=== PATIENT | male | born 1980 | race Caucasian/White ===

== ENCOUNTER → 2020-09-09 | Outpatient (REF) | payer OTHER | LOC: M WUC 11:47 | PROVIDERS: ATTEND Physician Assistant | DX: R19.7 Diarrhea, unspecified (principal) ==

== ENCOUNTER 2021-03-01 08:43 | Day surgery (SDC) | payer OTHER ==
[~2021-03-01] VITALS: Ht 170.2 cm; Wt 90.7 kg
[~2021-03-01 08:43] MED LIST: LIDOCAINE 2% 100MG/5ML SDV (FOR ANES.) As Ordered ONE; NS 1,000 ML IV ONE; OMEP1CAP73 PO; ZOLO100T PO; propofoL 200 MG/20 ML VIAL As Ordered ONE
--- OUTSIDE RECORDS SUMMARY | 2021-03-01 08:47 | CCD ---
Author Author [facility] Organization [facility] Address Unknown Phone Unavailable Care Team Providers Care Extruding Press Adjuster Name Role Phone Erin Milton MD Unavailable Unavailable Erin Milton MD Unavailable Unavailable Erin Milton MD Unavailable Unavailable Erin Milton MD Unavailable Unavailable Erin Milton MD Unavailable Unavailable Erin Milton MD Unavailable Unavailable Erin Milton MD Unavailable Unavailable Erin Milton MD Unavailable Unavailable Erin Milton MD Unavailable Unavailable Erin Milton MD Unavailable Unavailable Erin Milton MD Unavailable Unavailable Erin Milton MD Unavailable Unavailable Erin Milton MD Unavailable Unavailable Erin Milton MD Unavailable Unavailable Erin Milton MD Unavailable Unavailable Erin Milton MD Unavailable Unavailable Erin Milton MD Unavailable Unavailable Erin Milton MD Unavailable Unavailable Erin Milton MD Unavailable Unavailable Erin Milton MD Unavailable Unavailable Erin Milton MD Unavailable Unavailable Erin Milton MD Unavailable Unavailable Erin Milton MD Unavailable Unavailable Erin Milton MD Unavailable Unavailable Erin Milton MD Unavailable Unavailable Erin Milton MD Unavailable Unavailable Erin Milton MD Unavailable Unavailable Erin Milton MD Unavailable Unavailable Erin Milton MD Unavailable Unavailable Karine, S Lavell MD Unavailable Unavailable Karine, S Lavell MD Unavailable Unavailable Karine, S Lavell MD Unavailable Unavailable Karine, S Lavell MD Unavailable Unavailable Karine, S Lavell MD Unavailable Unavailable Karine, S Lavell MD Unavailable Unavailable Karine, S Lavell MD Unavailable Unavailable Karine, S Lavell MD Unavailable Unavailable Karine, S Lavell MD Unavailable Unavailable Karine, S Lavell MD Unavailable Unavailable Karine, S Lavell MD Unavailable Unavailable Karine, S Lavell MD Unavailable Unavailable Karine, S Lavell MD Unavailable Unavailable Karine, S Lavell MD Unavailable Unavailable Karine, S Lavell MD Unavailable Unavailable Karine, S Lavell MD Unavailable Unavailable Karine, S Lavell MD Unavailable Unavailable Karine, S Lavell MD Unavailable Unavailable Karine, S Lavell MD Unavailable Unavailable Karine, S Lavell MD Unavailable Unavailable Karine, S Lavell MD Unavailable Unavailable Karine, S Lavell MD Unavailable Unavailable RING, K REYNALDO PA Unavailable Unavailable RING, K REYNALDO PA Unavailable Unavailable RING, K REYNALDO PA Unavailable Unavailable RING, K REYNALDO PA Unavailable Unavailable RING, K REYNALDO PA Unavailable Unavailable RING, K REYNALDO PA Unavailable Unavailable RING, K REYNALDO PA Unavailable Unavailable RING, K REYNALDO PA Unavailable Unavailable RING, K REYNALDO PA Unavailable Unavailable RING, K REYNALDO PA Unavailable Unavailable RING, K REYNALDO PA Unavailable Unavailable RING, K REYNALDO PA Unavailable Unavailable RING, K REYNALDO PA Unavailable Unavailable RING, K REYNALDO PA Unavailable Unavailable RING, K REYNALDO PA Unavailable Unavailable RING, K REYNALDO PA Unavailable Unavailable RING, K REYNALDO PA Unavailable Unavailable RING, K REYNALDO PA Unavailable Unavailable RING, K REYNALDO PA Unavailable Unavailable RING, K REYNALDO PA Unavailable Unavailable RING, K REYNALDO PA Unavailable Unavailable RING, K REYNALDO PA Unavailable Unavailable RING, K REYNALDO PA Unavailable Unavailable Miedema, Marcos Bowling MD Unavailable Unavailable Miedema, Marcos Bowling MD Unavailable Unavailable Miedema, Marcos Bowling MD Unavailable Unavailable Miedema, Marcos Bowling MD Unavailable Unavailable Miedema, Marcos Bowling MD Unavailable Unavailable Miedema, Marcos Bowling MD Unavailable Unavailable Miedema, Marcos Bowling MD Unavailable Unavailable Miedema, Marcos Bowling MD Unavailable Unavailable Miedema, Marcos Bowling MD Unavailable Unavailable Miedema, Marcos Bowling MD Unavailable Unavailable Miedema, Marcos Bowling MD Unavailable Unavailable Miedema, Marcos Bowling MD Unavailable Unavailable Miedema, Marcos Bowling MD Unavailable Unavailable Miedema, W Dash MD Unavailable Unavailable Miedema, W Dash MD Unavailable Unavailable Miedema, W Dash MD Unavailable Unavailable Miedema, W Dash MD Unavailable Unavailable Miedema, W Dash MD Unavailable Unavailable Miedema, W Dash MD Unavailable Unavailable Miedema, W Dash MD Unavailable Unavailable Miedema, W Dash MD Unavailable Unavailable Miedema, W Dash MD Unavailable Unavailable Miedema, W Dash MD Unavailable Unavailable Miedema, W Dash MD Unavailable Unavailable Miedema, W Dash MD Unavailable Unavailable Miedema, W Dash MD Unavailable Unavailable Miedema, W Dash MD Unavailable Unavailable Miedema, W Dash MD Unavailable Unavailable Miedema, W Dash MD Unavailable Unavailable Re-disclosure Warning The records that you are about to access may contain information from federally-assisted alcohol or drug abuse programs. If such information is present, then the following federally mandated warning applies: This information has been disclosed to you from records protected by federal confidentiality rules (42 CFR part 2). The federal rules prohibit you from making any further disclosure of this information unless further disclosure is expressly permitted by the written consent of the person to whom it pertains or as otherwise permitted by 42 CFR part 2. A general authorization for the release of medical or other information is NOT sufficient for this purpose. The Federal rules restrict any use of the information to criminally investigate or prosecute any alcohol or drug abuse patient.The records that you are about to access may contain highly sensitive health information, the redisclosure of which is protected by Article 27-F of the [facility] Public Health law. If you continue you may have access to information: Regarding HIV / AIDS; Provided by facilities licensed or operated by the [facility] Office of Mental Health; or Provided by the [facility] Office for People With Developmental Disabilities. If such information is present, then the following [facility] mandated warning applies: This information has been disclosed to you from confidential records which are protected by state law. State law prohibits you from making any further disclosure of this information without the specific written consent of the person to whom it pertains, or as otherwise permitted by law. Any unauthorized further disclosure in violation of state law may result in a fine or alf sentence or both. A general authorization for the release of medical or other information is NOT sufficient authorization for further disc losure. Encounters Encounter Providers Location Date Indications Data Source(s ) Outpatient Attender: Lavell Milton MD Main Office 01/03/2021 11:30:00 AM EDT [facility] ([facility]) Outpatient Attender: REYNALDO Dove 09/08/2020 01:20:00 PM EDT [facility] ([facility]) Outpatient Attender: Dash Lee MDConsultant: Dash alexander MD 01/26/2020 12:19:35 PM EST - 01/27/2020 05:30:00 AM [facility] Patient discharged. Outpatient Attender: Dash Lee MDConsultant: Dash alexander MD 12/29/2019 03:28:46 PM EDT - 12/30/2019 05:30:00 AM EDT [facility] Patient discharged. Medications Medication Brand Name Start Date Product Form Dose Route Admi nistrative Instructions Pharmacy Instructions Status Indications Reaction Description Data Source(s) Suprep Bowel Prep Kit Suprep Bowel Prep Kit 01/03/2021 12:00:00 AM EDT active [facility]) Insurance Providers Payer name Policy type / Coverage type Policy ID Covered republican ID Covered republican's relationship to bowman Policy Bowman Plan Information [facility] ACTIVE DUTY [id number] SP [id number] [facility] ACTIVE DUTY [id number] SP [id number] [facility] HUMANA - O/P [id number] 18 [id number] [facility] [id number] S [id number] Problems, Conditions, and Diagnoses Code Display Name Description Problem Type Effective Dates Data Source(s) G4733 Obstructive sleep apnea (adult) (pediatr ic) Obstructive sleep apnea (adult) (pediatric) Diagnosis 01/26/2020 08:00:00 PM [facility] [id number] Helicobacter pylori gastrointestinal tra ct infection Helicobacter pylori gastrointestinal tract infection Problem 01/03/2021 12:00:00 AM EDT [facility] ([facility]) Note: HISTORY OF H PYLORI Surgeries/Procedures Procedure Description Date Indications Data Source(s) OFFICE OUTPATIENT NEW 45 MINUTES 01/03/2021 12:00:00 A M EDT [facility] ([facility]) Results ID Date Data Source [id number] 02/24/2021 08:31:00 AM EST [facility] Name Value Range Interpretation Code Description Data Jeni rce(s) Supporting Document(s) SARS coronavirus 2 RNA Not Detected [facility] [place] This lab was ordered by [facility] and reported by [facility]. ID Date Data Source [id number] 09/09/2020 01:57:00 PM EDT [facility] ([facility]) Name Value Range Interpretation Code Description Data Jeni rce(s) Supporting Document(s) Gastrointestinal (GI) Panel Laboratory test result [facility] ([facility]) see Progress note ID Date Data Source [id number] 09/08/2020 02:02:00 PM EDT [facility] ([facility]) Name Value Range Interpretation Code Description Data Jeni rce(s) Supporting Document(s) Lipoprotein lipase [Enzymatic activity/volume] in Serum or P lasma 107 U/L 73-393 [facility] ([facility] Pending GI panel ID Date Data Source [id number] 09/08/2020 02:02:00 PM EDT [facility] ([facility]) Name Value Range Interpretation Code Description Data Jeni rce(s) Supporting Document(s) Blood Urea Nitrogen 13 mg/dL 7-18 [facility] ([facility]) Pending GI panel Glucose, Fasting 79 mg/dL 70-100 [facility] ([facility]) Pending GI panel Creatinine For GFR 1.03 mg/dL 0.70-1.30 [facility] ([facility]) Pending GI panel Glomerular Filtration Rate Laboratory test result [facility] ([facility]) Pending GI panel Sodium Level 139 meq/L 136-145 [facility] ([facility]) Pending GI panel Potassium Serum 3.6 meq/L 3.5-5.1 [facility] ([facility]) Pending GI panel Anion Gap 6 meq/L 8-16 [facility] ([facility]) Pending GI panel Carbon Dioxide Level 27 meq/L 21-32 [facility] ([facility]) Pending GI panel Chloride Level 106 meq/L 98-107 [facility] ([facility]) Pending GI panel Calcium Level 9.4 mg/dL 8.5-10.1 [facility] ([facility]) Pending GI panel Alkaline Phosphatase 68 U/L 45-117 [facility]) Pending GI panel Alt/SGPT 56 U/L 12-78 [facility] ([facility]) Pending GI panel Ast/Sgot 23 U/L 7-37 [facility] ([facility]) Pending GI panel Total Protein 7.3 GM/DL 6.4-8.2 [facility] ([facility]) Pending GI panel Bilirubin,Total 0.8 mg/dL 0.2-1.0 [facility] ([facility]) Pending GI panel Albumin 4.2 GM/DL 3.2-5.2 [facility] ([facility]) Pending GI panel Albumin/Globulin Ratio 1.4 [facility] ([facility]) Pending GI panel ID Date Data Source [id number] 09/08/2020 02:02:00 PM EDT [facility] ([facility]) Name Value Range Interpretation Code Description Data Jeni rce(s) Supporting Document(s) White Blood Count 9.0 10 4.0-10.0 [facility]) Pending GI panel Hemoglobin 17.1 g/dL 13.5-17.5 [facility]) Pending GI panel Red Blood Count 5.99 10 4.30-6.10 [facility] ([facility]) Pending GI panel Hematocrit 49.0 % 42.0-52.0 [facility] ([facility]) Pending GI panel Mean Corpuscular Volume 81.8 fl 80.0-96.0 M [facility] ([facility]) Pending GI panel Mean Corpuscular Hemoglobin 28.5 pg 27.0-33.0 [facility] ([facility]) Pending GI panel Mean Corpuscular HGB Conc 34.9 g/dL 32.0-36.5 [facility] ([facility]) Pending GI panel Platelet Count, Automated 223 10 150-450 [facility] ([facility]) Pending GI panel Red Cell Distribution Width 11.9 % 11.5-14.5 [facility] ([facility]) Pending GI panel Neutrophils % 62.7 % 36.0-66.0 [facility] ([facility]) Pending GI panel Lymph % 25.9 % 24.0-44.0 [facility] ([facility]) Pending GI panel Latimer % 7.7 % 2.0-8.0 [facility] ([facility]) Pending GI panel Baso % 0.4 % 0.0-1.0 [facility] ([facility]) Pending GI panel Eos % 2.9 % 0.0-3.0 [facility] ([facility]) Pending GI panel Immature Granulocyte % 0.4 % 0-3.0 [facility] ([facility]) Pending GI panel Nucleated Red Blood Cell % 0.0 % 0-0 [facility] ([facility]) Pending GI panel Neutrophils # 5.7 10 1.5-8.5 [facility] ([facility]) Pending GI panel Lymph # 2.3 10 1.5-5.0 [facility] ([facility]) Pending GI panel Latimer # 0.7 10 0.0-0.8 [facility] ([facility]) Pending GI panel Baso # 0.0 10 0.0-0.2 [facility] ([facility]) Pending GI panel Eos # 0.3 10 0.0-0.5 [facility] ([facility]) Pending GI panel ID Date Data Source [id number] 09/08/2020 02:02:00 PM EDT [facility] ([facility]) Name Value Range Interpretation Code Description Data Jeni rce(s) Supporting Document(s) Helicobacter pylori IgM Ab [Units/volume] in Serum 12.1 units 0.0-8.9 [facility] ([facility]) Pending GI panel Lipoprotein lipase [Enzymatic activity/volume] in Serum or P lasma 107 U/L 73-393 [facility] ([place] [facility]) Pending GI panel Procedure Social History Code Duration Value Status Description Data Source(s ) Smoking 09/08/2020 12:00:00 AM EDT Patient has never smoked co mpleted Patient has never smoked [facility] ([facility]) Vital Signs ID Date Data Source UNK Name Value Range Interpretation Code Description Data Source(s) Body height 66 [in_i] 66 [in_i] [facility] ([facility]) 5'6" Body weight 200.00 [lb_av] 200.00 [lb_av] [facility] ([facility]) Systolic blood pressure 123 mm[Hg] 123 mm[Hg] [facility] Diastolic blood pressure 83 mm[Hg] 83 mm[Hg] [facility] Heart rate 70 /min 70 /min [facility] Body mass index (BMI) [Ratio] 32.3 kg/m2 32.3 k g/m2 [facility] ([facility]) Body weight 90.720 kg 90.720 kg [facility] ([facility]) Body temperature 98.6 [degF] 98.6 [degF] [facility] Systolic blood pressure 137 mm[Hg] 137 mm[Hg] [facility] Diastolic blood pressure 94 mm[Hg] 94 mm[Hg] [facility]) Heart rate 94 /min 94 /min [facility]) Respiratory rate 13 /min 13 /min [facility] ( [place] [facility]) Oxygen saturation in Arterial blood by Pulse oximetry 96 % 96 % [facility]) Body temperature 98.9 [degF] 98.9 [degF] [facility]) Body weight 187.00 [lb_av] 187.00 [lb_av] [facility] T ([facility]) Body height 66 [in_i] 66 [in_i] [facility] ([facility]) 5'6" Body mass index (BMI) [Ratio] 30.2 kg/m2 30.2 k g/m2 [facility] ([place] [facility])
--- OUTSIDE RECORDS SUMMARY | 2021-03-01 08:47 | CCD | Continuity of Care Document ---
Author Author Vincenzo MILTON M.D. Organization Unknown Address [address] [place] [address] Phone [phone] Care Team Providers Care Traveling Sales Executive Name Role Phone Vincenzo Tineo AUTM [phone] Problems Active Problems Provider Date Helicobacter pylori gastrointestinal tract infection Lavell Milton M.D. Onset: 01/03/2021 Note: HISTORY OF H PYLORI Social History Type Date Description Comments Sex Unknown ETOH Use Denies alcohol use Tobacco Use Start: Unknown Patient has never smoked Allergies and adverse reactions Description No Known Drug Allergies Medications Active Medications SIG Qnty Indications Ordering Provide r Date Suprep Bowel Prep Kit 17.5-3.13-1.6GM/177ML Solution use as directed 354ml Lavell Milton M.D. 01/03/2021 Zoloft 100mg Tablets Unknown Immunizations Description No Information Available Vital Signs Date Vital Result Comment 01/03/2021 12:04pm Height 66 inches 5'6" Weight 200.00 lb BP Systolic 123 mmHg BP Diastolic 83 mmHg Heart Rate 70 /min BMI (Body Mass Index) 32.3 kg/m2 Weight 90.720 kg Body Temperature 98.6 F Results Description No Information Available Procedures Date Code Description Status 01/03/2021 46836 Office/Outpatient New Moderate M DM 45-59 Minutes Completed Medical Devices Description No Information Available Encounters Type Date Location Provider Dx Diagnosis Office Visit 01/03/2021 11:30a Main Office Lavell Milton M.D. K 21.9 Gastro-esophageal reflux disease without esophagitis K58.9 Irritable bowel syndrome wit hout diarrhea Assessments Date Code Description Provider 01/03/2021 K21.9 Gastroesophageal reflux disease Lavell Milton M.D. 01/03/2021 K58.9 Irritable bowel syndrome Lavell Milton M.D. Plan of Treatment Future Appointment(s):* 02/15/2021 6:30 am - Alisa at Main Office * 03/01/2021 11:45 am - Lavell Milton M.D. at Main Office 01/03/2021 - Lavell Milton M.D.* K21.9 Gastroesophageal reflux disease* Comments:* 40 yo wm who presents for a colonoscopy/egd due to a h/o diarrhea/abdominal pain/gerd/positive h/o H. Pylori. Positive c/o abdominal pain, no weight loss, positive change in bowel habits, or rectal bleeding. No family h/o colon cancer. No h/o chest pain, or sob. Plan:1. Colonoscopy + egd2. Informed consent. * K58.9 Irritable bowel syndrome* Comments:* As above. Functional Status Description No Information Available Mental Status Description No Information Available Referrals Refer to Dr Reason for Referral Status Appt Date Lavell Milton M.D. Created [address] [place] [address] [phone]
--- OUTSIDE RECORDS SUMMARY | 2021-03-01 08:47 | CCD | Continuity of Care Document ---
Author Author Vincenzo MILTON M.D. Organization Unknown Address [address] [place] [address] Phone [phone] Care Team Providers Care Account Manager Name Role Phone Vincenzo Tineo AUTM [phone] Problems Active Problems Provider Date Helicobacter pylori [...] Available Procedures Date Code Description Status 01/03/2021 94958 Office/Outpatient New Moderate M DM 45-59 Minutes [...] Date Lavell Milton M.D. Created [address] [place] [address] [phone]
--- NOTE | 2021-03-01 10:03 | ROOR ---
Patient Name: Vincenzo King Procedure Date: 03/01/2021 9:46 AM Date of : 1980 Age: 40 Room: [facility] Gender: Male Note Status: Finalized Procedure: Upper Endoscopy + Biopsies Indications: Epigastric abdominal pain, Heartburn Providers: Lavell Milton MD Referring MD: LEANDRO REEVES MD Requesting Provider: Medicines: Monitored Anesthesia Care Complications: No immediate complications. Procedure: Pre-Anesthesia Assessment: - The heart rate, respiratory rate, oxygen saturations, blood pressure, adequacy of pulmonary ventilation, and response to care were monitored throughout the procedure. The Endoscope was introduced through the mouth, and advanced to the second part of duodenum. The upper GI endoscopy was accomplished without difficulty. The patient tolerated the procedure well. Findings: The Z-line was regular and was found 35 cm from the incisors. Multiple biopsies were obtained with cold forceps for evaluation to rule out Dovre's Esophagus randomly at the gastroesophageal junction. A small hiatal hernia was present. No other significant abnormalities were identified in a careful examination of the stomach. Biopsies were taken with a cold forceps in the gastric antrum for Helicobacter pylori testing. The exam of the duodenum was otherwise normal. Impression: - Z-line regular, 35 cm from the incisors. - Small hiatal hernia. - Multiple biopsies were obtained at the gastroesophageal junction. - Biopsies were taken with a cold forceps for Helicobacter pylori testing. - The examination was otherwise normal. Recommendation: - Patient has a contact number available for emergencies. The signs and symptoms of potential delayed complications were discussed with the patient. Return to normal activities tomorrow. Written discharge instructions were provided to the patient. - High fiber diet. - Discharge patient to home. - Follow an antireflux regimen. - Continue present medications. - Await pathology results. - Telephone GI clinic for pathology results in 1 week. - Return to referring physician. - The findings and recommendations were discussed with the patient. Procedure Code(s): --- Professional --- 26995, Esophagogastroduodenoscopy, flexible, transoral; with biopsy, single or multiple Diagnosis Code(s): --- Professional --- K44.9, Diaphragmatic hernia without obstruction or gangrene R10.13, Epigastric pain R12, Heartburn CPT copyright 2019 [employer]. All rights reserved. The codes documented in this report are preliminary and upon web user experience strategist review may be revised to meet current compliance requirements. Lavell Milton MD Lavell Milton MD 03/01/2021 10:03:15 AM Electronically signed by Lavell Milton MD Number of Addenda: 0 Note Initiated On: 03/01/2021 9:46 AM Estimated Blood Loss: Estimated blood loss: none.
--- NOTE | 2021-03-01 10:18 | ROOR ---
Patient Name: Vincenzo King Procedure Date: 03/01/2021 9:47 AM Date of : 1980 Age: 40 Room: [facility] Gender: Male Note Status: Finalized Procedure: Total Colonoscopy to Cecum + ileoscopy Indications: Screening in patient at increased risk: Family history of 1st-degree relative with colorectal cancer Providers: Lavell Milton MD Referring MD: LEANDRO REEVES MD Requesting Provider: Medicines: Monitored Anesthesia Care Complications: No immediate complications. Procedure: Pre-Anesthesia Assessment: - The heart rate, respiratory rate, oxygen saturations, blood pressure, adequacy of pulmonary ventilation, and response to care were monitored throughout the procedure. The Colonoscope was introduced through the anus and advanced to the cecum, identified by appendiceal orifice and ileocecal valve. The colonoscopy was performed without difficulty. The patient tolerated the procedure well. The quality of the bowel preparation was excellent. Findings: The perianal and digital rectal examinations were normal. Non-bleeding internal hemorrhoids were found during retroflexion. The hemorrhoids were small and Grade I (internal hemorrhoids that do not prolapse). No other significant abnormalities were identified in a careful examination of the remainder of the colon. The terminal ileum appeared normal. Impression: - Non-bleeding internal hemorrhoids. - The examined portion of the ileum was normal. - No specimens collected. - The exam was otherwise normal to the cecum. Recommendation: - Patient has a contact number available for emergencies. The signs and symptoms of potential delayed complications were discussed with the patient. Return to normal activities tomorrow. Written discharge instructions were provided to the patient. - High fiber diet. - Discharge patient to home. - Continue present medications. - Repeat colonoscopy in 10 years for screening purposes. - Return to referring physician. - The findings and recommendations were discussed with the patient. Procedure Code(s): --- Professional --- G0105, Colorectal cancer screening; colonoscopy on individual at high risk Diagnosis Code(s): --- Professional --- Z80.0, Family history of malignant neoplasm of digestive organs K64.0, First degree hemorrhoids CPT copyright 2019 [employer]. All rights reserved. The codes documented in this report are preliminary and upon slunk skinner review may be revised to meet current compliance requirements. Lavell Milton MD Lavell Milton MD 03/01/2021 10:18:15 AM Electronically signed by Lavell Milton MD Number of Addenda: 0 Note Initiated On: 03/01/2021 9:47 AM Estimated Blood Loss: Estimated blood loss: none.
[2021-03-01 10:30] VITALS: BP 138/79
[2021-03-01] MEDS ORDERED: propofoL 200 MG/20 ML VIAL As Ordered ONE (11:59)
== END 2021-03-01 10:44 | disposition home or self-care (01) ==
LOC: M OPP 08:43
PROVIDERS: ATTEND Internal Medicine Gastroenterology
DX: Z12.11 Encounter for screening for malignant neoplasm of colon (principal); Z80.0 Family history of malignant neoplasm of digestive organs; K64.8 Other hemorrhoids; K44.9 Diaphragmatic hernia without obstruction or gangrene; R10.13 Epigastric pain; G47.30 Sleep apnea, unspecified; Z79.899 Other long term (current) drug therapy; Z86.19 Personal history of other infectious and parasitic diseases; B96.81 Helicobacter pylori [H. pylori] as the cause of diseases classified elsewhere

== ENCOUNTER → 2023-01-13 | Outpatient (CLI) | payer OTHER ==
[~2023-01-13] MED LIST changes: -LIDOCAINE 2% 100MG/5ML SDV (FOR ANES.) As Ordered ONE; -NS 1,000 ML IV ONE; -propofoL 200 MG/20 ML VIAL As Ordered ONE
== END ==
LOC: M SLEEP 20:00
PROVIDERS: ATTEND Nurse Practitioner Family
DX: G47.33 Obstructive sleep apnea (adult) (pediatric) (principal)